=== PATIENT | female | born 1945 | race Caucasian/White ===

== ENCOUNTER → 2020-01-19 | Outpatient (CLI) | payer OTHER | LOC: SJCVC 11:28 | DX: R06.00 Dyspnea, unspecified (principal); I10 Essential (primary) hypertension; E78.00 Pure hypercholesterolemia, unspecified; K21.9 Gastro-esophageal reflux disease without esophagitis; J45.909 Unspecified asthma, uncomplicated; E78.5 Hyperlipidemia, unspecified; E03.9 Hypothyroidism, unspecified; Z82.49 Family history of ischemic heart disease and other diseases of the circulatory system; Z79.899 Other long term (current) drug therapy; Z87.891 Personal history of nicotine dependence ==

== ENCOUNTER → 2020-03-11 | Outpatient (CLI) | payer OTHER | LOC: CAT 09:34 | PROVIDERS: ATTEND Internal Medicine Cardiovascular Disease | DX: Z13.6 Encounter for screening for cardiovascular disorders (principal); I25.10 Atherosclerotic heart disease of native coronary artery without angina pectoris; E78.00 Pure hypercholesterolemia, unspecified ==

== ENCOUNTER 2020-11-14 15:27 | Emergency (ER) | payer OTHER ==
[~2020-11-14] VITALS: Ht 162.6 cm; Wt 95.3 kg
[2020-11-14 16:55] VITALS: BP 119/55
== END 2020-11-14 16:55 | disposition home or self-care (01) ==
LOC: ER 15:27
DX: S01.81XA Laceration without foreign body of other part of head, initial encounter (principal); S60.221A Contusion of right hand, initial encounter; E11.9 Type 2 diabetes mellitus without complications; Z88.8 Allergy status to other drugs, medicaments and biological substances; Z91.040 Latex allergy status; W01.0XXA Fall on same level from slipping, tripping and stumbling without subsequent striking against object, initial encounter; Y93.89 Activity, other specified; Y92.89 Other specified places as the place of occurrence of the external cause; Y99.8 Other external cause status

== ENCOUNTER → 2021-02-28 | Outpatient (CLI) | payer OTHER | LOC: SJCVC 12:57 | PROVIDERS: ATTEND Internal Medicine Cardiovascular Disease | DX: R94.31 Abnormal electrocardiogram [ECG] [EKG] (principal); I45.10 Unspecified right bundle-branch block; I44.60 Unspecified fascicular block; R06.00 Dyspnea, unspecified; I10 Essential (primary) hypertension; E78.00 Pure hypercholesterolemia, unspecified; K21.9 Gastro-esophageal reflux disease without esophagitis; E11.9 Type 2 diabetes mellitus without complications; E03.9 Hypothyroidism, unspecified; G47.30 Sleep apnea, unspecified; Z79.899 Other long term (current) drug therapy; Z87.891 Personal history of nicotine dependence; Z91.040 Latex allergy status ==